=== PATIENT | female | born 1990 | race Caucasian/White ===

== ENCOUNTER 2021-05-04 15:30 | Emergency (ER) | payer OTHER ==
[~2021-05-04] VITALS: Ht 157.5 cm; Wt 49.0 kg
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
[2021-05-04 16:15] LABS: BILIRUBIN,URINE NEGATIVE (NEGATIVE); COLOR,URINE YELLOW (YELLOW); LEUKOCYTE ESTERASE ,URINE MODERATE (NEGATIVE); NITRITE, URINE NEGATIVE (NEGATIVE); PH,URINE 7.5 (5.0-8.0); PROTEIN,URINE NEGATIVE (NEGATIVE); UGLUCOSE NEGATIVE (NEGATIVE); UROBILINOGEN,URINE 0.2 EU/dL (0.2)
[2021-05-04 16:19] LABS: BACTERIA,URINE 2+ /HPF (None Seen); RBC,URINE 21-50 /HPF (0-2); SQUAMOUS EPITHELIAL CELL,UR 0-2 /HPF (None Seen); WBC,URINE 51-80 /HPF (0-3)
[2021-05-04] MEDS ORDERED: NITR100C6 PO ×2 (17:21→18:01)
[2021-05-04] MEDS ORDERED: CEPH500C2 PO (17:48)
--- NOTE | 2021-05-04 18:01 | NUR ---
Patient discharged to home in stable condition. Written and verbal after care instructions given. Patient verbalizes understanding of instruction.
[2021-05-04 18:22] VITALS: BP 119/72
== END 2021-05-04 18:23 | disposition home or self-care (01) ==
LOC: ER 15:32
DX: N39.0 Urinary tract infection, site not specified (principal); Z88.2 Allergy status to sulfonamides; Z79.899 Other long term (current) drug therapy
CPT/HCPCS: 72110-TC; 81001; 84703-TC; 87086-TC; 87186-TC

== ENCOUNTER 2021-05-12 17:59 | Emergency (ER) | payer OTHER ==
[~2021-05-12] VITALS: Ht 157.5 cm; Wt 49.0 kg
[~2021-05-12 17:59] MED LIST: CEPH500C2 PO; NITR100C6 PO
--- NOTE | 2021-05-12 18:13 | NUR ---
BIB SELF C/O PAINFUL URINATION. AMBULATORY, [id number]
--- NOTE | 2021-05-12 18:14 | NUR ---
URINE SAMPLE COLLECTED AND SENT TO LAB.
--- NOTE | 2021-05-12 18:15 | NUR ---
ON BED SIDE
[2021-05-12] MEDS ORDERED: CEPH500C2 PO (18:28)
[2021-05-12] MEDS ORDERED: PHEN-705 PO (18:28)
--- NOTE | 2021-05-12 18:42 | NUR ---
Patient discharged to home in stable condition. Written and verbal after care instructions given. Patient verbalizes understanding of instruction.
[2021-05-12 18:44] VITALS: BP 116/84
== END 2021-05-12 18:45 | disposition home or self-care (01) ==
LOC: ER 18:02
DX: N39.0 Urinary tract infection, site not specified (principal); Z20.2 Contact with and (suspected) exposure to infections with a predominantly sexual mode of transmission; Z87.39 Personal history of other diseases of the musculoskeletal system and connective tissue; Z88.2 Allergy status to sulfonamides; Z60.2 Problems related to living alone; Z79.899 Other long term (current) drug therapy
CPT/HCPCS: 87086-TC